=== PATIENT | male | born 1995 ===

== ENCOUNTER 2025-02-23 11:36 | Emergency (ER) | payer SELFPAY ==
[2025-02-23 12:01] VITALS: BP 123/76
[2025-02-23] MEDS: TYLENOL 1000 MG PO (14:40)
--- NOTE | 2025-02-23 19:19 | ED.GENMED ---
History of Present Illness
General
Chief Complaint: Fall
Source: patient
Exam Limitations: none
Time Seen by Provider: 02/23/25 13:39
Nursing documentation reviewed up to this point in time: agreed with
History of Present Illness
History of Present Illness:
Patient is a 29-year-old male who presents to the emergency department for evaluation after mechanical fall today. Patient states he was at work on a job site when he slipped on ice on the patio falling backward striking his head. He denies any
LOC. Fortunately, he was able to get up on his own however has had persistent headache and discomfort in his upper back/neck prompting visit to the emergency department.
Patient denies any nausea or episodes of vomiting. No changes in vision, dizziness, ataxia. Patient denies any pain in his upper or lower extremities. No back pain. He has been ambulating without difficulty.
He is not on any oral anticoagulation.
Review of Systems
Review of Systems
Allergies reviewed?: Yes
All Other Systems: ROS reviewed and negative except as documented in HPI and ROS
Phy Exam
Physical Exam
Physical Exam:
Vitals: Patient's vital signs are stable. Afebrile
General: Patient is well appearing, no acute distress
Skin: Warm and dry, no rashes or lesions
Head: Normocephalic, small contusion to posterior scalp without laceration
Eyes: Sclera nonicteric. Pupils equal round reactive light bilaterally. EOMs intact. No nystagmus.
Throat: Protecting airway
Neck: Normal ROM, mild tenderness in upper trapezius bilaterally without midline cervical spine tenderness
Cardiac: Regular rate and rhythm, no murmurs.
Pulm: Normal respiratory effort. Lungs clear. No midline spinal tenderness
Abdomen: No abdominal tenderness.
Extremities: Bilateral upper and lower extremities atraumatic and nontender full range of motion.
Neuro: AAOx3. CN II-XII grossly intact. No focal neurologic deficits.
Psychiatric: Normal affect.
Course
Orders/Labs/Results
Orders:
Orders
02/23/25 12:04
CT Cervical Spine W/o Iv Contr Urgent
Comment:
Reason For Exam: fall
CT Head W/o Iv Contrast Urgent
Comment:
Reason For Exam: fall
02/23/25 14:31
Acetaminophen [Tylenol] 1,000 mg PO NOW STA
Vital Signs
Initial and Last Documented VS:
Initial Vital Signs
Temp Pulse Resp BP Pulse Ox
98.6 F 75 18 123/76 99
02/23/25 12:02/23/25 12:01 02/23/25 12:01 02/23/25 12:01 02/23/25 12:01
Last Documented Vital Signs
Temp Pulse Resp BP Pulse Ox
98.6 F 75 18 123/76 99
02/23/25 12:02/23/25 12:01 02/23/25 12:01 02/23/25 12:01 02/23/25 19:19
MDM/Problems Addressed
Differential Diagnosis Includes:
Not limited to: Contusion, concussion, intracranial bleeding, cervical spine fracture, neck strain, etc.
MDM/Problems Addressed:
29-year-old male presenting with headache and neck pain after slip and fall on ice while at work. No LOC. No oral anticoagulation.
Vital stable. On exam, patient does have a small hematoma to posterior scalp without any laceration. He is neurologically intact. Mild upper trapezius discomfort bilaterally without any midline cervical tenderness. No midline spinal tenderness
or evidence of extremity injuries.
CT head and cervical spine without evidence of intracranial bleeding or fracture. Suspect likely concussion and cervical muscle strain/whiplash injury. Feel stable for discharge home with supportive care including pain management and primary care
follow-up. Strict return precautions discussed.
Chronic conditions affecting care:
N/A
Acute Exacerbation and/or Progression of Chronic Illness:
N/A
*Radiology
Radiology exam reviewed: radiology read reviewed
*Pulse Oximetry
SaO2: 99
Oxygen Mode of Delivery: Room air
Patient hypoxic: no
*EKG
Interpreted by ED Provider?: NA
*Bill Of Materials Clerk Interpretation
Rate: Bill Of Materials Clerk- N/A
*Critical Care Note
Total Time (30-74mins, 75-104mins- exclusive of procedures): Not Applicable
ED Attending Note
-
Portions of this chart may have been created with voice recognition software.� Occasional wrong word or��sound alike� substitutions may have occurred due to the inherent limitations of voice recognition software.
Discharge Plan
Departure
Patient Disposition: Home (Routine Discharge)
Date of Disposition: 02/23/25
Time of Disposition: 14:32
Patient with high blood pressure during this ER visit?: No
Condition: Good
Discharge Problem:
Concussion, Cervical muscle strain
Instructions: Concussion, Adult (DC), Head Injury in Adults (DC), Cervical Sprain ED
Stand Alone Forms: Return to Work
Activity Restrictions/Additional Instructions:
RETURN TO THE EMERGENCY DEPARTMENT WITH ANY SEVERE HEADACHE OR NECK PAIN, INTRACTABLE VOMITING, PERSISTENT DIZZINESS, VISUAL CHANGES OR CHANGES IN MENTAL STATUS, NUMBNESS/TINGLING OR WEAKNESS IN EXTREMITIES, WORSENING IN CURRENT SYMPTOMS, OR ANY
OTHER CONCERNS
� As discussed�your imaging showed no evidence of bleeding in the brain or fracture of your cervical spine. You likely sustained a concussion and suffered a whiplash injury/strain of your cervical spine muscles.
- You can take Tylenol and alternate with Motrin at home as needed for headache or neck pain. You can apply topical lidocaine patches. It is important to stay well-hydrated and get plenty of rest.
- Follow-up with your primary care provider and/or Workmen's Compensation for further evaluation/management to ensure that your symptoms improve
Monitor your symptoms closely and return to the emergency department with any acute worsening/new symptoms or any other concerns
Interventions
Interventions:
*General Assessment Last Done: 02/23/25 12:01
*Neglect/Abuse Screening Last Done: 02/23/25 12:01
*ED COVID-19 Vaccine History Last Done: 02/23/25 12:01
*ED Influenza Vaccine History Last Done: 02/23/25 12:01
*Risk Screen - Suicide (C-SSRS) Last Done: 02/23/25 12:01
*Nursing Disposition Last Done: 02/23/25 14:45
ED- Neurological Assessment Last Done: 02/23/25 14:41
Discharge Date and Time
Discharge Date/Time: 02/23/25 14:46
Print Language: THAI
== END 2025-02-23 14:46 | disposition home or self-care (01) ==
LOC: EMR 11:36
PROVIDERS: EMERGENCY PHYSICIAN Emergency Medicine
DX: S06.0X0A Concussion without loss of consciousness, initial encounter (principal); S16.1XXA Strain of muscle, fascia and tendon at neck level, initial encounter; W00.0XXA Fall on same level due to ice and snow, initial encounter; Y99.0 Civilian activity done for income or pay
CPT/HCPCS: 99284; 70450; 72125